=== PATIENT | female | born 1960 | race African-American/Black ===

== ENCOUNTER 2019-08-23 17:07 | Emergency (ER) | payer BC, OTHER ==
[~2019-08-23] VITALS: Ht 180.3 cm; Wt 122.5 kg
[2019-08-23 18:18] VITALS: BP 148/100
== END 2019-08-23 20:22 | disposition home or self-care (01) ==
LOC: ER 17:07 → EDBD 17:07 → ER 20:22
DX: S20.212A Contusion of left front wall of thorax, initial encounter (principal); M54.9 Dorsalgia, unspecified; R06.02 Shortness of breath; V43.52XA Car driver injured in collision with other type car in traffic accident, initial encounter; Y93.89 Activity, other specified; Y92.89 Other specified places as the place of occurrence of the external cause; Y99.8 Other external cause status
CPT/HCPCS: 71046; 93005